=== PATIENT | female | born 1955 | race Caucasian/White ===

== ENCOUNTER → 2021-12-26 | Outpatient (CLI) | payer OTHER | LOC: KOH-I 14:19 | DX: R05.9 Cough, unspecified (principal) | CPT/HCPCS: 71046 ==

== ENCOUNTER → 2022-04-01 | Outpatient (CLI) | payer OTHER | LOC: KOH-I 16:00 | DX: R05.9 Cough, unspecified (principal); R49.8 Other voice and resonance disorders; R91.8 Other nonspecific abnormal finding of lung field | CPT/HCPCS: 71250; 77080 ==